=== PATIENT | female | born 1975 | race Caucasian/White ===

== ENCOUNTER 2020-05-14 09:46 | Emergency (ER) | payer OTHER, SELFPAY ==
--- NOTE | ~2020-05-14 | XR_ITS ---
XR ankle RT min 3V 05/14/2020 10:19 INDICATION: Right ankle tenderness PROCEDURE: 4 views right ankle COMPARISON: No prior studies for comparison. FINDINGS: Fracture, dislocation or subluxation is not identified. Ankle mortise intact. Small calcane al plantar enthesophyte. The soft tissues appear within normal limits. No foreign bodies are identif ied. IMPRESSION: 1: NO ACUTE BONE OR JOINT ABNORMALITY IDENTIFIED. Reviewed, dictated and finalized at location A.
[2020-05-14 09:50] VITALS: BP 152/86; PULSE 81; RESP 20; TEMP 36.6; O2SAT 98
--- NOTE | 2020-05-14 09:59 | ED.LOWEXIN ---
HPI - Extremity Injury (Lower) General Chief Complaint: Extremity Injury, Lower Stated Complaint: Right ankle Time Seen by Provider: 05/14/20 09:59 Source: patient Mode of arrival: wheelchair Limitations: no limitations History of Present Illness HPI Narrative: 45-year-old woman comes in today complaining of right ankle pain and swelling after she twisted it last evening about 8:30 p.m.. She states that she stepped on a dog bone was on the floor at home. She states that she can only bear weight on the outer part of her foot. She denies numbness. She denies prior ankle problems. complaint: ankle injury Onset (ago): hour(s) (13) Injury: Right: ankle Type of Injury: inversion Place: home Severity: moderate Relieving factors: rest Exacerbating factors: weight bearing, movement and palpation Context: walking Associated symptoms: swelling and able to partially bear weight Related Data Home Medications Medication Instructions Recorded Confirmed benzonatate 100 mg PO DAILY 05/14/20 05/14/20 cetirizine [Zyrtec] 10 mg PO DAILY 05/14/20 05/14/20 montelukast [Singulair] 10 mg PO DAILY 05/14/20 05/14/20 Allergies Allergy/AdvReac Type Severity Reaction Status Date / Time erythromycin base Allergy Verified 02/27/12 17:01 Review of Systems Eyes: Eyes: Denies change in vision and Denies photophobia Cardiovascular: Cardiovascular: Denies chest pain and Denies radiating jaw, neck or arm pain Respiratory: Respiratory: Denies cough and Denies dyspnea Gastrointestinal: Gastrointestinal: Denies abdominal pain, Denies nausea and Denies vomiting Neurologic: Denies vertigo, Denies dizziness and Denies syncope Hematologic/Lymphatic: Hematologic/Lymphatic: Denies easy bleeding and Denies easy bruising Allergic/Immunologic: Allergic/Immunologic: Denies lip swelling and Denies wheezing PMFSH Past Medical History Medical History Environmental allergies Surgical History Surgical History H/O tubal ligation H/O: hysterectomy Hx of tonsillectomy Social History Social History (Updated 05/14/20 @ 10:32 by Diogenes Guerra MD) Smoking status: Never smoker Substance use: never Living arrangements: with family Exam Const: General: healthy appearing and alert Orientation/consciousness: patient oriented x3 Limitations: no limitations Other: [id number] acute distress Skin: General skin exam: normal color, no jaundice and no pallor Rashes: no rashes Neuro: General: patient oriented x3, moves all extremities, no focal motor deficits and CN's II-XI intact bilaterally Speech: normal speech Extrem: General: no clubbing, cyanosis or edema Other: Mild swelling of the right ankle with tenderness predominantly over the deltoid ligament and the medial malleolus. There is no tenderness palpation of the lateral malleolus, the fibula along its entire length, the 5th metatarsal, midfoot or distal foot. Psych: Appearance: grossly normal and well kempt Mental Status: mental status grossly normal Affect: normal affect Attitude: cooperative Thought content: Yes Normal thought content present MDM - Extremity Injury (Lower) Imaging Data Radiologist's impression: ITS Impressions Ankle X-Ray 05/14/20 10:25 IMPRESSION: 1: NO ACUTE BONE OR JOINT ABNORMALITY IDENTIFIED. Discharge Plan Discharge Clinical Impression: Right ankle sprain Patient Disposition: Home, Self-Care Condition: Stable Instructions: Ankle Sprain (ED) Additional Instructions: Rest, ice, elevation and ibuprofen. Follow up with your Primary Care Physician next week. Prescriptions: New acetaminophen-codeine [Tylenol-Codeine #3] 300-30 mg tablet 1 tablet PO Q6H PRN (Reason: pain) Qty: 15 RF: 0 (DME) crutch Misc See Rx Instructions .ROUTE .MEDSUPPLY Qty: 2 RF: 0 No Action benzonatate 1
[2020-05-14] MEDS: IBUPROFEN 600 MG TABLET PO (10:11)
[2020-05-14 10:50] VITALS: BP 152/86; PULSE 75; RESP 20; TEMP 36.6; O2SAT 98
--- NOTE | 2020-05-15 23:55 | PC.NURSE ---
ankle gel splint applied to right ankle per kristin jaquez
== END 2020-05-14 10:54 | disposition home or self-care (01) ==
PROVIDERS: Emergency Provider Emergency Medicine; PCP Internal Medicine
DX: S93.401A Sprain of unspecified ligament of right ankle, initial encounter (principal); X50.1XXA Overexertion from prolonged static or awkward postures, initial encounter
CPT/HCPCS: 29515; 73610; 99283; A9270; L4350

== ENCOUNTER 2020-07-25 07:21 | Outpatient (CLI) | payer OTHER, SELFPAY ==
--- NOTE | ~2020-07-25 | MM_ITS ---
EXAMINATION: MM screening [facility] BI w sinan HISTORY: Screening TECHNIQUE: Craniocaudal and mediolateral oblique 3-D tomosynthesis images were obtained and synthetic 2-D images were generated. CAD analysis was submitted and interpreted. COMPARISON: Comparison to multiple prior studies sequentially, with oldest reviewed study dated 08/06. BREAST PARENCHYMAL COMPOSITION: The breasts are heterogeneously dense, which may obscure small masses . FINDINGS: There is no evidence of suspicious mass, calcification, or architectural distortion to sugg est malignancy in either breast. There has been no suspicious interval change. IMPRESSION: 1. No mammographic evidence of malignancy. 2. Recommend routine screening mammography in one year. BI-RADS Category 1: Negative Reviewed, dictated and finalized at location A.
== END 2020-07-25 07:22 | disposition home or self-care (01) ==
LOC: CHSIMG 07:23
PROVIDERS: PCP Internal Medicine; Visit Provider Obstetrics & Gynecology Gynecology
DX: Z12.31 Encounter for screening mammogram for malignant neoplasm of breast (principal)
CPT/HCPCS: 77063; 77067

== ENCOUNTER 2021-04-06 18:23 | Emergency (ER) | payer OTHER, SELFPAY ==
--- NOTE | 2021-04-06 18:34 | ED.EAR ---
HPI - Ear Problem General Chief complaint: Ear Stated complaint: ear infection Time Seen by Provider: 04/06/21 18:34 Source: patient Mode of arrival: ambulatory Limitations: no limitations History of Present Illness HPI Narrative: Aurora White is a 46 yo female with no PMH [facility] of bilateral ear clogging that has continued for almost a month. She has extensive allergies and has already been on doxycycline, Mucinex, tried Flonase. She is taking some kind of alternative procedure even though she does not sound congested but has bilateral ear pain she says feels like it needs to pop. Discussed possible ENT referral and eustachian tube dysfunction. Patient smokes 1 pack of cigarettes a day; does not feel this is a contributing factor Related Data Home Medications Medication Instructions Recorded Confirmed cetirizine [Zyrtec] 10 mg PO DAILY 05/14/20 04/06/21 montelukast [Singulair] 10 mg PO DAILY 05/14/20 04/06/21 Allergies Allergy/AdvReac Type Severity Reaction Status Date / Time erythromycin base Allergy Verified 02/27/12 17:01 Review of Systems Review of Systems: Narrative: CONSTITUTIONAL: Denies fever, chills, sweats. EYES: Denies visual changes, redness, discharge. ENT: Denies rhinorrhea, congestion, sore throat, otalgia. Bilateral ear pain and pressure CARDIOVASCULAR: Denies chest pain, palpitations, edema. RESPIRATORY: Denies dyspnea, wheezing, cough GASTROINTESTINAL: Denies abdominal pain, nausea, vomiting, diarrhea. GENITOURINARY: Denies dysuria, hematuria, abnormal discharge SKIN: Denies rash or itching. NEUROLOGIC: Denies numbness, or focal weakness. PSYCHIATRIC: Denies anxiety or depression. [facility] Past Medical History Medical History (Updated 04/06/21 @ 19:07 by Elo Marques CNP) Environmental allergies Sinusitis Surgical History Surgical History H/O tubal ligation H/O: hysterectomy Hx of tonsillectomy Family History Family History Other Heart disease Hypertension Social History Social History (Updated 04/06/21 @ 19:08 by Elo Marques CNP) Smoking packs per day: 1.0 Smoking cigarettes per day: 20.0 Smoking status: Current every day smoker Tobacco type: cigarettes Substance use: never Comments At time of signature, I agree with nursing past medical, surgical, social and family history. There is no relevant family history pertinent to the presenting complaint. Exam Narrative: Exam Narrative: GENERAL: This is a well-nourished, well-developed patient, in mild distress. HEAD: normocephalic, atraumatic. EYES: Sclera clear/white. Vision is grossly intact. EARS: External ears normal, auditory canals clear and without drainage, TMs normal without perforation. Hearing grossly intact. Patient complains of pressure NOSE: External nose normal without nasal discharge, nares without redness, no rhinorrhea. THROAT: Mucous membranes moist, posterior pharynx mild erythema NECK: Neck supple,. Area under both ears mildly tender CARDIOVASCULAR: Regular rate and rhythm without murmurs, gallops, or rubs. RESPIRATORY: Clear to auscultation. Breath sounds equal bilaterally. No wheezes, rales, or rhonchi. GASTROINTESTINAL: Abdomen soft, non-tender, SKIN: warm, intact with no suspicious lesions or rash, good texture and turgor. NEURO: awake, alert, and oriented to person, place and time. There were no obvious focal neurologic abnormalities. Steady gait EXTREMITIES: Normal range of motion. BACK: Nontender without deformity Course Course Emergency Course: Patient is a 46-year-old female with complaints of sinus pressure and ear clogging bilaterally. Has taken doxycycline and used a variety of other kinds of antihistamines Discussed options which are limited on meds that she is has not taken she is not congested and are have obvious s
[2021-04-06 18:35] VITALS: BP 124/80; PULSE 83; RESP 18; TEMP 36.4; O2SAT 100
== END 2021-04-06 19:04 | disposition home or self-care (01) ==
PROVIDERS: Emergency Provider Nurse Practitioner; PCP Internal Medicine
DX: J34.9 Unspecified disorder of nose and nasal sinuses (principal); H69.83 Other specified disorders of Eustachian tube, bilateral; F17.210 Nicotine dependence, cigarettes, uncomplicated
CPT/HCPCS: 99213; G0463

== ENCOUNTER 2021-08-16 07:07 | Outpatient (CLI) | payer OTHER, SELFPAY ==
--- NOTE | ~2021-08-16 | MM_ITS ---
EXAMINATION: MM screening rita BI w sinan HISTORY: Screening mammogram TECHNIQUE: Craniocaudal and mediolateral oblique 3-D tomosynthesis images were obtained and synthetic 2-D images were generated. CAD analysis was submitted and interpreted. COMPARISON: No prior mammogram is available for comparison at this institution. BREAST PARENCHYMAL COMPOSITION: The breasts are heterogeneously dense, which may obscure small masses . FINDINGS: There is no evidence of suspicious mass, calcification, or architectural distortion to sugg est malignancy in either breast. There has been no suspicious interval change. IMPRESSION: 1. No mammographic evidence of malignancy. 2. Recommend routine screening mammography in one year. BI-RADS Category 1: Negative Reviewed, dictated and finalized at location A.
[2021-08-19 20:01] LABS: Vitamin D 25 Hydroxy 94 ng/mL (30-100)
== END 2021-08-16 07:08 | disposition home or self-care (01) ==
PROVIDERS: PCP Internal Medicine; Visit Provider Obstetrics & Gynecology Gynecology
DX: E55.9 Vitamin D deficiency, unspecified (principal); Z12.31 Encounter for screening mammogram for malignant neoplasm of breast
CPT/HCPCS: 36415; 77063; 77067; 82306

== ENCOUNTER 2022-08-29 13:55 | Outpatient (CLI) | payer OTHER, SELFPAY ==
--- NOTE | ~2022-08-29 | MM_ITS ---
EXAMINATION: MM screening [facility] BI w sinan HISTORY: Screening mammogram TECHNIQUE: Craniocaudal and mediolateral oblique 3-D tomosynthesis images were obtained and synthetic 2-D images were generated. CAD analysis was submitted and interpreted. COMPARISON: 08/16/2021, 07/25/2020, 07/21/2019 BREAST PARENCHYMAL COMPOSITION: The breasts are heterogeneously dense, which may obscure small masses . FINDINGS: No suspicious mass, calcification, or architectural distortion are identified in either sola ast to suggest malignancy. There has been no suspicious interval change. IMPRESSION: 1. No mammographic evidence of malignancy. 2. Recommend routine screening mammography in one year. BI-RADS Category 1: Negative Reviewed, dictated and finalized at location B.
--- NOTE | ~2022-08-29 | DEXA_ITS ---
Bone Density Report Name: SALAS BRANCH Age: 47 Sex: Female Ethnicity: White Date of : 1975 Indication: postmenopausal; height loss; hysterectomy; Referring Provider: Jeniffer Cruz Study: Bone densitometry was performed. Exam Date: August 29, 2022 Accession number: [id number] Bone Density: Region BMD T-score Z-score Classification AP Spine(L1-L4) 0.899 -1.3 -0.6 Osteopenia Femoral Neck (Left) 0.790 -0.5 0.2 Normal Total Hip (Left) 0.853 -0.7 -0.3 Normal Femoral Neck (Right) 0.792 -0.5 0.2 Normal Total Hip (Right) 0.822 -1.0 -0.5 Normal Femoral Neck Mean 0.791 -0.5 0.2 Normal Total Hip Mean 0.838 -0.9 -0.4 Normal World Health Organization criteria for BMD impression classify patients as: Normal (T-score at or above -1.0), Osteopenia (T-score between -1.0 and -2.5), or Osteoporosis (T-score at or below -2.5). 10-year Fracture Risk(1): Major Osteoporotic Fracture 3.4% Hip Fracture 0.2% Reported Risk Factors: [place] (), Neck BMD=0.790, BMI=29.3, smoking (1) FRAX(R) Version 3.08. Fracture probability calculated for an untreated patient. Fracture probability may be lower if the patient has received treatment. Clinical Information Provided by Patient: Smokes Has the following medical conditions: Hysterectomy Patient maximum height was 63 Menopause Age: 26 No regular weight bearing exercise Drinks caffeinated beverages Onset of menses at age 15 Number of children 0 Missed period for more than 6 months in a row Impression: The patient has low bone mass, based on the Total Spine T-score. The patient has risk factors, including: smoking. Discussion: BONE DENSITY IS LOW AT ONE OR MORE SKELETAL SITES. This patient's lowest T-score is low at one or more skeletal sites. It meets the World Health Organization's (WHO) criteria for ?low bone mass? (T-score between -1.0 and -2.5). The patient's 10-year risk of fracture as calculated by FRAX is less than the threshold where pharmacological therapy is recommended by the National Osteoporosis Foundation (NOF). However, all treatment decisions require clinical judgment and consideration of individual patient factors, including patient preferences, comorbidities, previous drug use, risk factors not captured in the FRAX model (e.g., frailty, falls, vitamin D deficiency, increased bone turnover, interval significant decline in bone density) and possible under or overestimation of fracture risk by FRAX. The patient should follow a healthful lifestyle (good nutrition with adequate calcium and vitamin D, and appropriate weight-bearing exercise). Follow-Up: Consider repeating this study in 2 to 3 years to reassess this patient's status, or sooner if there is some new clinical indication. Reported by:
[2022-09-04 12:22] LABS: Vitamin D 25 Hydroxy 50 ng/mL (30-100)
== END 2022-08-29 13:56 | disposition home or self-care (01) ==
PROVIDERS: PCP Obstetrics & Gynecology Gynecology; Visit Provider Obstetrics & Gynecology Gynecology
DX: Z78.0 Asymptomatic menopausal state (principal); Z12.31 Encounter for screening mammogram for malignant neoplasm of breast; E55.9 Vitamin D deficiency, unspecified
CPT/HCPCS: 36415; 77063; 77067; 77080; 82306

== ENCOUNTER 2023-09-01 07:24 | Outpatient (CLI) | payer OTHER, SELFPAY ==
--- NOTE | ~2023-09-01 | MM_ITS ---
EXAMINATION: MM screening rita BI w sinan HISTORY: Screening mammogram TECHNIQUE: Craniocaudal and mediolateral oblique 3-D tomosynthesis images were obtained and synthetic 2-D images were generated. CAD analysis was submitted and interpreted. COMPARISON: 08/29/2022, 08/16/2021, 07/25/2020 bilateral screening mammogram examinations BREAST PARENCHYMAL COMPOSITION: The breasts are heterogeneously dense, which may obscure small masses . FINDINGS: There is no evidence of suspicious mass, calcification, or architectural distortion to sugg est malignancy in either breast. There has been no suspicious interval change. IMPRESSION: 1. No mammographic evidence of malignancy. 2. Recommend routine screening mammography in one year. BI-RADS Category 1: Negative Reviewed, dictated and finalized at location A.
== END 2023-09-01 07:25 | disposition home or self-care (01) ==
LOC: CHSIMG 07:27
PROVIDERS: PCP Internal Medicine; Visit Provider Obstetrics & Gynecology Gynecology
DX: Z12.31 Encounter for screening mammogram for malignant neoplasm of breast (principal)
CPT/HCPCS: 77063; 77067

== ENCOUNTER 2024-11-02 07:14 | Outpatient (CLI) | payer OTHER, SELFPAY ==
--- NOTE | ~2024-11-02 | MM_ITS ---
EXAMINATION: MM screening rita BI w sinan HISTORY: Screening TECHNIQUE: Craniocaudal and mediolateral oblique 3-D tomosynthesis images were obtained and synthetic 2-D images were generated. CAD analysis was submitted and interpreted. COMPARISON: Comparison to multiple prior studies sequentially, with oldest reviewed study dated 08/16. BREAST PARENCHYMAL COMPOSITION: Dense: The breasts are heterogeneously dense, which may obscure small masses FINDINGS: There is no evidence of suspicious mass, calcification, or architectural distortion to sugg est malignancy in either breast. There has been no suspicious interval change. IMPRESSION: 1. No mammographic evidence of malignancy. 2. Recommend routine screening mammography in one year. BI-RADS Category 1: Negative Reviewed, dictated and finalized at location B. [employer]
== END 2024-11-02 07:15 | disposition home or self-care (01) ==
PROVIDERS: PCP Internal Medicine; Visit Provider Obstetrics & Gynecology Gynecology
DX: Z12.31 Encounter for screening mammogram for malignant neoplasm of breast (principal)
CPT/HCPCS: 77063; 77067

== ENCOUNTER 2025-09-27 17:12 | Emergency (ER) | payer OTHER, SELFPAY ==
[2025-09-27 17:19] VITALS: BP 145/83; PULSE 75; RESP 16; TEMP 36.3; O2SAT 99
--- NOTE | 2025-09-27 17:32 | ED_ITS ---
HPI - Ear Problem General Chief complaint: Ear Stated complaint: Ear Pain Time Seen by Provider: 09/27/25 17:20 Source: patient Mode of arrival: ambulatory Limitations: no limitations History of Present Illness HPI Narrative: Aurora is a 50-year-old female patient presenting to the clinic today with complaints of right ear pain x1 week. She reports she has recently got off an airplane. Feels as though she has a lot of pressure behind the right ear. Pain is radiating to her jaw. Denies any chest pain or shortness of breath. Patient has been taking Sudafed. Related Data Home Medications ?Medication ?Instructions ?Recorded ?Confirmed ?Last Taken ?Type cetirizine 10 mg capsule (Zyrtec) 10 mg PO DAILY 05/1404/06/21 Unknown History ergocalciferol (vitamin D2) 1,250 09/27/25 Unknown H istory mcg (50,000 unit) capsule estradiol 0.5 mg tablet mg 09/27/25 Unknown History valacyclovir 500 mg tablet mg 09/27/25 Unknown Histor y Allergies Allergy/AdvReac Type Severity Reaction Status Date / Time erythromycin base Allergy Intermediate Hives Verified 09/27/25 17:18 [facility] Past Medical History Medical History (Updated 09/27/25 @ 17:26 by Demond Velazco APRN) Sinusitis Environmental allergies Surgical History Surgical History (System 07/18/21 @ 10:22 by Coreen Avila) Hx of tonsillectomy H/O tubal ligation H/O: hysterectomy Family History Family History Other Heart disease Hypertension Social History Social History (System 07/18/21 @ 10:22 by Coreen Avila) Smoking packs per day: 1.0 Smoking cigarettes per day: 20.0 Tobacco type: cigarettes Substance use: never Living arrangements: with family Comments At the time of my signature, I reviewed and agree with the nursing past medical, surgical, social, and family history. There is no relevant family history pertinent to the patient complaint. Course Course Emergency Course: Portions of this record may have been created with voice recognition software. Level of Care: Express Care Visit Vital Signs Vital signs: Vital Signs Temperature 36.3 C L 09/27/25 17:19 Pulse Rate 75 09/27/25 17:19 Respiratory Rate 16 09/27/25 17:19 Blood Pressure 145/83 H 09/27/25 17:19 Pulse Oximetry 99 09/27/25 17:19 Temperature 36.3 C L 09/27/25 17:19 Pulse Rate 75 09/27/25 17:19 Respiratory Rate 16 09/27/25 17:19 Blood Pressure 145/83 H 09/27/25 17:19 Pulse Oximetry 99 09/27/25 17:19 Vital signs reviewed Medical Decision Making MDM Narrative Medical decision making narrative: At the time of visit patient is resting comfortably on the exam table. Patient appears to be nontoxic. Complaints of right ear pain x1 week. She reports she has recently got off an airplane. Feels as though she has a lot of pressure behind the right ear. Pain is radiating to her jaw. Denies any chest pain or shortness of breath. Patient has been taking Sudafed for her symptoms. On exam patient has bilateral TMs intact, right TM bulging with tenderness to palpation over the station tube, left TM mildly congested, no nasal drainage, oropharynx normal, heart rates regular rate and rhythm lung sounds are clear. Plan: I suspect patient has right eustachian tube dysfunction. Prescription for prednisone was sent to the pharmacy. Supportive measures were discussed with the patient and they voiced understanding discharge instructions and agrees to treatment plan. Return precautions reviewed Differential Diagnosis Differential Diagnosis: Otitis media, otitis sternum eustachian tube dysfunction, cerumen impaction, upper respiratory infection, serous otitis Vital Signs Vital Signs: Vital Signs Temperature 36.3 C L 09/27/25 17:19 Pulse Rate 75 09/27/25 17:19 Respiratory Rate 16 09/27/25 17:19 Blood Pressure 145/83 H 09/27/25 17:19 Pulse Oximetry 99 09/27/25 17:19 Temperature 36.3 C L 09/27/25 17:19 Pulse Rate 75 09/27/25 17:19 Respiratory Rate 16 09/27/25 17:19 Blood Pressure 145/83 H 09/27/25 17:19 Pulse Oximetry 99 09/27/25 17:19 Discharge Plan Discharge Clinical Impression: Acute dysfunction of right eustachian tube Patient Disposition: Home Condition: Stable Instructions: Antibiotic Form, Earache (ED) Additional Instructions: Take any prescribed medications only as directed-prednisone Tylenol/motrin as needed for pain May use heating pad to alleviate pain If you get recurrent ear infections it may be warranted to follow up with ENT. Follow up with your PCP in 3-5 days if symptoms persist. Patient Language: French Prescriptions: New prednisone 20 mg tablet 40 mg PO DAILY 5 Days Qty: 10 0RF No Action Zyrtec 10 mg Capsule 10 mg PO DAILY valacyclovir 500 mg tablet estradiol 0.5 mg tablet ergocalciferol (vitamin D2) 1,250 mcg (50,000 unit) capsule Follow-up/Referrals: PHYSICIAN,ELEMENTARY READING TUTOR [Primary Care Provider, Internal Medicine] Time of Disposition: 17:26 Quality NIHSS Nursing Documentation ED NIHSS nursing documentation: reviewed/agree
== END 2025-09-27 17:27 | disposition home or self-care (01) ==
PROVIDERS: Emergency Provider Nurse Practitioner Family
DX: H69.91 Unspecified Eustachian tube disorder, right ear (principal)
CPT/HCPCS: 99213; G0463